=== PATIENT | male | born 1985 | race Hispanic/Latino ===

== ENCOUNTER 2019-03-01 09:49 | Observation (INO) | payer OTHER, SELFPAY ==
[2019-03-01] VITALS (8 sets, daily range): BP systolic 103–125; BP diastolic 58–77; PULSE 58–78; RESP 14–24; TEMP 36.6–36.9; O2SAT 95–99; BMI 24.3; BMI 22.8; BMI 22.9
--- NOTE | 2019-03-01 10:05 | EKG12_ITS ---
Test Reason : SOB Blood Pressure : / mmHG Vent. Rate : 062 BPM Atrial Rate : 062 BPM P-R Int : 136 ms QRS Dur : 090 ms QT Int : 388 ms P-R-T Axes : 062 048 032 degrees QTc Int : 393 ms Normal sinus rhythm Normal ECG Confirmed by SUMA STANLEY, ROBBY ([id number]), film editor supervisor MARTIN BERNARD ([id number] on 03/03/2019 8:43:55 AM Referred By: CRISTINA Confirmed By:ROBBY MOISE MD
--- NOTE | 2019-03-01 10:05 | CT_ITS ---
STUDY: CTA CHEST REASON FOR EXAM: Male, 34 years old. Hemoptysis and shortness of breath. Recent knee surgery. RADIATION DOSAGE (If Supplied By Facility): CTDIvol = ( 8.44 ) mGy, DLP = ( 218.23 ) mGycm TECHNIQUE: The examination was performed with the intravenous administration of IV 75mL [id number]-[id number] 75. Post-processing of the angiographic images was performed, with multiplanar reformation and 3D reconstruction. Individualized dose optimization techniques were used for this CT. COMPARISON: None. FINDINGS: Normal enhancement of the main pulmonary artery and right and left pulmonary arteries. Normal enhancement of the bilateral peripheral pulmonary arteries. There is no demonstrated pulmonary embolism. Normal thoracic aorta and visualized great vessels. There is no demonstrated aortic dissection. Normal heart and pericardium. Normal mediastinum. Normal hilar regions. Normal visualized trachea and bronchi. The lungs are well expanded. Diffuse bilateral patchy airspace disease involving both lungs. Normal pleura. Normal chest wall structures. Normal osseous structures. Normal visualized upper abdomen. CT/CTA Chest W/WO Contrast IMPRESSION: Diffuse bilateral patchy areas of airspace disease involving both lungs. With the patient's history of hemoptysis, this may represent pulmonary hemorrhage. Electronically Signed: Shukri Francois, at 11:22 EDT , Service support ,
--- NOTE | 2019-03-01 10:06 | ED.DCSUM_ITS ---
History of Present Illness Chief Complaint: Shortness of Breath Detail of Chief Complaint: Hemoptysis, pleuritic chest pain, shortness of breath, postop Informant: Friend - Friend is design leader per patient's request Limited by: Language barrier Onset: Today Context: Sudden Onset Timing: Continuous Quality: Dyspnea, pleuritic chest pain and hemoptysis Location: Respiratory Current Severity: Mild Maximum Severity: Moderate Worsened by: Exertion Relieved by: Nothing Associated Symptoms: No other symptoms Narrative: Patient is a 34-year-old male who presents because of pleuritic chest pain, shortness of breath and hemoptysis. He had arthroscopic surgery with meniscal ectomy and chondroplasty performed by Dr. Doug Rico on February 26. He does have slight swelling of his right lower extremity. He is on no anticoagulant. He has no past medical history. He has no allergies. Prior similar symptoms: No Recent Illness/Hospitalization: Yes - Outpatient knee surgery - Past Medical History (1) No significant past medical history Status: Acute Past Medical History - Allergies and Home Meds Allergies/Adverse Reactions: Allergies No Known Allergies Allergy (Verified 03/01/19 09:53) Primary Care Physician: NOT,DEFINED [NON-STAFF] - Prior records reviewed: No Past Medical History: None Surgical History: - - Right knee arthroscopic surgery Lives: Roommate Smoking Status: Never smoker Drugs: None Review of Systems General: Denies: Chills, Fever, Malaise, Sweats Eyes: Denies: Visual changes - bilaterally, Blurred Vision - bilaterally, Dipl opia ENT: Reports: Sore throat - Localizes to suprasternal notch. Denies: Rhinorrhea Cardiovascular: Reports: Chest pain. Denies: Palpitations, Heart racing Respiratory: Reports: Dyspnea, Dyspnea on exertion, - - Hemoptysis. Denies: Cough, Sputum, Orthopnea, Paroxysmal nocturnal dyspnea, - Gastrointestinal: Denies: Abdominal pain, Nausea, Vomiting, Diarrhea, Melena, Hematochezia Genitourinary: Denies: Dysuria, Hematuria, Frequency Musculoskeletal: Reports: Swelling - Right lower extremity. Denies: Myalgias, Arthralgias, Neck pain, Back pain, Extremity Pain Skin: Denies: Rash, Wounds Neurological: Denies: Headache, Weakness, Numbness Hematologic: Denies: Easy bruising, Easy bleeding Physical Exam Vital Signs/Narrative: Vital Signs Temp Pulse Resp BP Pulse Ox 03/01/19 09:51 98 F 78 18 104/69 99 Inital Vital Signs reviewed: Yes General: Well nourished, Well developed, No Acute Distress Head: Normocephalic, Atraumatic Eyes: Perrl, EOMI ENT: Moist mucous membranes, No rhinorrhea Neck: Supple, Nontender Cardiovascular: Regular rate, Regular rhythm, No murmurs, Normal S1, Normal S2 Respiratory: No distress, CTA bilaterally, Chest nontender Abdomen: Soft, Nontender, Nondistended, Normal bowel sounds Back: Nontender, Normal Inspection. Negative for: CVA tenderness Extremities: No edema, Tenderness Skin: Normal color, No rash, No Trauma. Negative for: Cyanosis, Diaphoresis, Jaundice Neurological: Alert, Oriented x3, Cranial nerves II-XII grossly intact, Normal Strength, Normal Sensation Psychological: Normal affect, Normal Mood Diagnostic/Tx/Re-eval Impressions Chest CTA 03/01/19 10:05 IMPRESSION: Diffuse bilateral patchy areas of airspace disease involving both lungs. With the patient's history of hemoptysis, this may represent pulmonary hemorrhage. Electronically Signed: Shukri Francois, at 11:22 EDT , Service support , 03/01/19 10:05 CTA Chest W/WO Contrast [CT] Stat Laboratory Results 03/01/19 03/01/19 03/01/19 10:33 10:33 10:33 WBC 6.4 RBC 4.53 L Hgb 14.1 Hct 42.0 MCV 92.7 MCH 31.1 MCHC 33.6 RDW Std Deviation 41.7 RDW Coeff of Esperanza 12.1 Plt Count 328 MPV 10.0 Immature Gran % (Auto) 0.500 Neut % (Auto) 60.9 Lymph % (Auto) 28.9 Harrison % (Auto) 8.6 Eos % (Auto) 0.6 Baso % (Auto) 0.5 Absolute Neuts (auto) 3.9 Absolute Lymphs (auto) 1.85 Nucleated RBC % 0 PT 13.1 INR 1.0 APTT 27.4 Sodium 139 Potassium 3.8 Chloride 106 Carbon Dioxide 28.0 Anion Gap 5 BUN 13 Creatinine 0.83 Estim Creat Clear Calc 119.46 Est GFR (MDRD) Af Amer 138 Est GFR (MDRD) Non-Af 114 BUN/Creatinine Ratio 15.7 Glucose 88 Calcium 8.5 Total Bilirubin 1.20 H AST 21 ALT 39 Alkaline Phosphatase 71 Total Protein 7.7 Albumin 4.0 Globulin 3.7 Albumin/Globulin Ratio 1.1 - EKG Initial EKG Interpretation: Sinus Rhythm - Sinus rhythm with ventricular rate of 62. NE interval 236 ms. QS duration 90 ms. QT duration 388 ms. [place] is normal. The EKG is normal. - Medical Decision Making With recent surgery, dyspnea, pleuritic chest pain and hemoptysis patient high pretest probability for pulmonary embolus. This may represent a ruptured blood vessel with hemoptysis versus pneumonia as well. CTA of the chest was obtained to evaluate for pulmonary embolus Case was discussed with Dr. Vishal Alcantara. He states this may be secondary to halogen anesthetic. Calls placed to the orthopedic surgical center determine what static was used for his procedure. Spoke with hospitalist. Patient to be assigned to PCU for close observation. ED Disposition - Plan for ED Patient: Disposition: Acute Care Hospital [facility] Diagnosis: Pulmonary infiltrate on radiologic exam, Pulmonary hemorrhage Referrals: NOT,DEFINED [NON-STAFF] -
--- NOTE | 2019-03-01 10:08 | NURSING ---
NO OLD EKGS
[2019-03-01 12:32] LABS: Absolute Lymphocyte Count 1.85 X10^3/uL (0.83-4.51); Absolute Neutrophil Count 3.9 X10^3/uL (2.0-7.7); Basophil# 0.03 X10^3/uL; Basophil% 0.5 % (0-1); Eosinophil# 0.04 X10^3/uL; Eosinophils% 0.6 % (0-5); Hemoglobin 14.1 g/dL (13.0-16.5); Lymphocyte # 1.85 X10^3/ul (4.0); Lymphocyte % 28.9 % (19-41); Mean Corp Hgb Conc 33.6 g/dL (32-36); Mean Corpuscular Hgb 31.1 pg (27.0-32.0); Mean Corpuscular Volume 92.7 fL (80-94); Monocyte# 0.55 X10^3/uL; Monocyte% 8.6 % (0-10); NRBC Flagged by Analyzer 0 % (0-5); Neutrophil # 3.91 X10^3/uL (2.7-7.7); Neutrophil % 60.9 % (47-70); Platelet Count 328 K/mm3 (150-450); RBC Distribution Width CV 12.1 % (11.6-14.6); RBC Distribution Width SD 41.7 fl (35.1-43.9); Red Blood Count 4.53 M/mm3 (4.6-6.2); White Blood Count 6.4 K/mm3 (4.4-11.0)
[2019-03-01 12:36] LABS: Partial Thromboplast Time 27.4 Seconds (24.1-36.2); Prothrombin Time (Protime)PT. 13.1 SECONDS (11.7-14.9)
[2019-03-01 12:51] LABS: ALB/GLOB Ratio 1.1 RATIO (0.9-2.4); AST(SGOT) 21 U/L (15-37); Alanine Aminotransfer ALT/SGPT 39 U/L (16-61); Alkaline Phosphatase 71 U/L (45-117); Anion Gap 5 (5-15); BUN 13 mg/dL (7-18); BUN/Creat Ratio 15.7 RATIO (10-20); Calcium,Total 8.5 mg/dL (8.5-10.1); Chloride 106 mmol/L (98-107); Creatinine, Serum 0.83 mg/dL (0.70-1.30); EST Glomerular Filtration Rate 114 mL/min (>60); Est Glom Filt Rate - Afr Amer 138 mL/min (>60); Estimated Creatinine Clearance 119.46 ml/min; Globulin 3.7 g/dL (2.2-4.2); Glucose 88 mg/dL (74-106); Potassium 3.8 mmol/L (3.5-5.1); Protein, Total 7.7 g/dL (6.4-8.2); Sodium Level 139 mmol/L (136-145)
--- NOTE | 2019-03-01 13:20 | HP.PCM_ITS ---
Problem List (1) Pulmonary hemorrhage Status: Acute History of Present Illness Date of Admission: 03/01/19 Chief Complaint: Hemoptysis - 2 days The patient is a 34 year old M patient with limited Hungarian fluency, with no significant past medical history, non-smoker, who had right knee arthroscopic surgery done 3 days ago. History was taken from patient and his friend at the bedside. According to his friend, patient was noted to be hypoxic with SPO2 in the 80s in the immediate postop 3 days ago. He received breathing treatments and his SPO2 improved to 92% and he was discharged home. At home he had intermittent coughing spasms. He had chest pain worse with deep breathing and coughing. He had 3 episodes of hemoptysis mixed with sputum, initially about a coin size. This increased today with a single episode of hemoptysis, which was larger than previous and was predominantly blood. Patient complains of pain in his upper chest, worse with coughing. He denied any fever or chills or dizziness or palpitations. Vitals in the ED showed temperature of 98F, heart rate 78, blood pressure 104/69, respiratory rate was 18, SPO2 is 99% on room air. Written blood work showed WBC count of 6.4, hemoglobin 14.1, platelet count of 328, INR 1.0, CMP was unremarkable except for slight elevation in total bilirubin, otherwise normal LFTs. CTA of the chest shows diffuse bilateral patchy airspace disease involving both lungs. Past Medical History Allergies No Known Allergies Allergy (Verified 03/01/19 09:53) Home Medications: Ambulatory Orders Medication Instructions Recorded traMADol [Ultram (G)] 50 mg PO Q6H PRN PRN 03/01/19 Surgical History: - - Right knee arthroscopic surgery Psychiatric History: No pertinent psych hx Lives: Friends, Roommate Smoking Status: Never smoker Tobacco Use: Non-smoker Alcohol: Occasional Drugs: None - *Family History Maternal History Items: No pertinent history Paternal History Items: Unknown Review of Systems Constitutional: Denies: Anorexia, Chills, Fever, Malaise, Weakness, Weight Change, Fatigue Eyes: Denies: Blurred vision, Cataracts, Conjunctivae Inflammation, Pain, Redness, Vision Change HEENT: Denies: Difficulty Hearing, Difficulty Swallowing, Head Aches, Hearing Changes, Sinus Congestion, Sinus Drainage Cardiovascular: Denies: Chest Pain, Claudication, Chest Tightness, Light Headedness, Orthopnea, Palpitations Respiratory: Reports: Hemoptysis, Shortness of Breath, Shortness of breath upon exertion. Denies: Cough, Shortness of breath at rest, Sputum production, Wheezing Gastrointestinal: Denies: Abdominal Pain, Constipation, Hematemesis, Hematochezia, Nausea, Vomiting Genitourinary: Denies: Dysuria, Frequency, Incontinence Musculoskeletal: Reports: Joint Tenderness - Right knee surgical site. Denies: Joint Pain, Joint stiffness, Joint swelling Skin: Denies: Rash, Wounds Neurological: Denies: Numbness, Tingling, Focal weakness Psychiatric: Denies: Anxiety, Depression, Homicidal Ideations, Suicidal Ideations Hematologic/ Lymphatic: Denies: Easy Bruising, Easy Bleeding VTE Information - Inpt Only VTE Present on Admission: No VTE Pharm Prophylaxis ordered?: Yes Patient Problems: Active and Suspected Problems Pulmonary infiltrate on radiologic exam (Acute) Pulmonary hemorrhage (Acute) - Physical Exam General: Alert, Oriented x3, Cooperative, No apparent distress HEENT: Atraumatic, PERRLA, EOMI, Normocephalic Oral: Moist Mucosa Neck: Supple Lungs: Clear to auscultation, Normal air movement Cardiovascular: Regular rate, Regular Rhythm, Normal S1, Normal S2, No murmurs Abdomen: Bowel Sounds Present, Soft, Non Tender, Non-Distended, No Hepato- splenomegaly Extremities: No edema, - - Right knee with mild swelling, erthema, 2 arthroscopic sutures are present, clean, no discharge from surgical sites Skin: No rashes, No breakdown Musculoskeletal: No Tenderness to Palpation of Joints or Extremities Lymphatic: No Cervical, Supraclavicular, or Inguinal Adenopathy Neurological: Cranial nerves II-XII grossly intact, Neuro grossly intact Psych/Mental Status: Normal Affect, Appropriate Vital Signs Temp Pulse Resp BP Pulse Ox 98 F 68 20 H 104/69 98 03/01/19 09:51 03/01/19 10:22 03/01/19 10:22 03/01/19 09:51 03/01/19 10:22 Oxygen Delivery Method Room Air Weight: 70.307 kg Body Mass Index (BMI) 24.3 Laboratory Tests Past 24 Hrs 03/01/19 03/01/19 03/01/19 10:33 10:33 10:33 WBC 6.4 RBC 4.53 L Hgb 14.1 Hct 42.0 MCV 92.7 MCH 31.1 MCHC 33.6 RDW Std Deviation 41.7 RDW Coeff of Esperanza 12.1 Plt Count 328 MPV 10.0 Immature Gran % (Auto) 0.500 Neut % (Auto) 60.9 Lymph % (Auto) 28.9 [place] % (Auto) 8.6 Eos % (Auto) 0.6 Baso % (Auto) 0.5 Absolute Neuts (auto) 3.9 Absolute Lymphs (auto) 1.85 Nucleated RBC % 0 PT 13.1 INR 1.0 APTT 27.4 Sodium 139 Potassium 3.8 Chloride 106 Carbon Dioxide 28.0 Anion Gap 5 BUN 13 Creatinine 0.83 Estim Creat Clear Calc 119.46 Est GFR (MDRD) Af Amer 138 Est GFR (MDRD) Non-Af 114 BUN/Creatinine Ratio 15.7 Glucose 88 Calcium 8.5 Total Bilirubin 1.20 H AST 21 ALT 39 Alkaline Phosphatase 71 Total Protein 7.7 Albumin 4.0 Globulin 3.7 Albumin/Globulin Ratio 1.1 Assessment/Plan All Active Problems No significant past medical history (Acute) Pulmonary infiltrate on radiologic exam (Acute) Pulmonary hemorrhage (Acute) 34 year old male patient with limited Hungarian fluency, with no significant past medical history, non-smoker, who had right knee arthroscopic surgery done 3 days ago. History was taken from patient and his friend at the bedside. 1. Hemoptysis, minimal per history, intermittent. History of recent arthroscopic surgery with immediate post-op hypoxia Likely aspiration pneumonitis. CTA of the chest shows bilateral diffuse alveolar opacities Plan: Admit to PCU under observation, breathing treatments prn, IV steroids, pulmonology consult Monitor for ongoing hemoptysis, HH Q6 x2, labs in am 2. Elevated total bilirubin, unclear etiology, unremarkable LFTs otherwise Will fractionate bilirubin, repeat blood work in am 3. Recent arthroscopic right knee surgery, postop day 3, patient denies pain Wound looks clean, encourage ambulation 4. DVT PPx- early ambulation Code Visit OBSV E&M: 28304 Initial observation care L3
--- NOTE | 2019-03-01 13:20 | NURSING ---
PCU PAINTSIL OBS NIRMALA PULMONARY INFILTRATES AND PULMONARY HEMORRHAGE
[2019-03-01] MEDS: MethylPREDNISolone 125 MG/2 ML Vial IV (13:42)
[2019-03-01 15:14] LABS: Hematocrit 43.2 % (40-54); Hemoglobin 14.4 g/dL (13.0-16.5)
--- NOTE | 2019-03-01 15:21 | PCM.CONS.PUL ---
Problem List (1) No significant past medical history Status: Acute (2) Pulmonary infiltrate on radiologic exam Status: Acute (3) Pulmonary hemorrhage Status: Acute Reason for Consult Date of Consultation: 03/01/19 Reason for Consultation: Hemoptysis History of Present Illness: The patient is a 34 year old M, with no significant past medical history, who presented to [facility] on 03/01/2019 secondary to progressive hemoptysis. Patient had reportedly had an arthroscopic knee surgery by Dr. Rico on February 26. Per the ER, patient did have some laryngospasm following surgery, but responded well to albuterol therapy. Patient reportedly received IV Versed and IV propofol. Patient had some shortness of breath after going home, but over the weekend started to develop progressive shortness of breath, pleuritic type chest pain and progressive hemoptysis, so came to the ER for evaluation. In the ER, patient had a significant lab work-up that was unremarkable, but his CT scan of the chest showed diffuse alveolar fluffy infiltrates. Some concern for the progression of hemoptysis, so patient was admitted under an observation status for evaluation. 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 Patient is from [facility], but has not been out of the country for over 10 years. Patient denies any prodromal fever, chills, nausea, vomiting, pleuritic chest pain, abdominal pain, melena or hematochezia. Patient does not report a history of chronic sinus issues. Patient did report a mild sore throat after his surgery, but had associated this with the onset of cough. Patient initially had reported no hemoptysis, but after 24 hours a dime sized hemoptysis and progressed to approximately quarter size hemoptysis this morning. This is what prompted the ER visit. Patient states that he is otherwise feeling okay. Patient is not having any significant sinus issues at this time. Patient states he has limited contact with his family, but is unaware of any rheumatologic or asthma type symptoms and any family members. Patient is never used inhalers himself. Patient never had a pulmonary function test. Patient denies any recent noxious exposures. Patient does not report any medication allergies. History was somewhat limited secondary to language barrier, but friend is able to interpret for him. Review of systems otherwise negative from a constitutional, HEENT, respiratory, cardiovascular, GI, genitourinary, musculoskeletal, skin, neurologic, psychiatric and hematologic system unless stated above. Past Medical History Allergies No Known Allergies Allergy (Verified 03/01/19 09:53) Home Medications: Ambulatory Orders Medication Instructions Recorded traMADol [Ultram (G)] 50 mg PO Q6H PRN PRN 03/01/19 Surgical History: - - Right knee arthroscopic surgery Psychiatric History: No pertinent psych hx Lives: Friends, Roommate Smoking Status: Never smoker Tobacco Use: Non-smoker Alcohol: Occasional Drugs: None - *Family History Maternal History Items: No pertinent history Paternal History Items: Unknown Review of Systems Comment: See HPI Patient Problems: Active and Suspected Problems Pulmonary infiltrate on radiologic exam (Acute) Pulmonary hemorrhage (Acute) Objective: CT scan of the chest was personally reviewed. No PE was identified, but patient does have multiple areas of alveolar fluffy infiltrates with posterior predominance. - Physical Exam General: Alert, Oriented x3, Cooperative, No apparent distress, Well developed, Well nourished, - - No conversational dyspnea. Appears stated age. HEENT: Atraumatic, PERRLA, EOMI, Normocephalic, - - No scleral icterus or injection noted. No epistaxis appreciated. Oral: Moist Mucosa, No Gingival or Mucosal Lesions/ Ulcerations Neck: Supple, No JVD, No Nodes, Trachea Midline Lungs: Clear to auscultation, Normal air movement, No rhonchi, No wheeze, No rales, - - Symmetric expansion. No dullness to percussion. Cardiovascular: Regular rate, Regular Rhythm, Normal S1, Normal S2, No murmurs, No rub noted, No Gallop Abdomen: Bowel Sounds Present, Soft, Non Tender, Non-Distended Extremities: No clubbing, No cyanosis, Capillary Refill Less than 3 Seconds, - - Slight edema of the right lower extremity. No exudate noted from surgical sites. Skin: No rashes, No breakdown, Incision - Clean, dry and intact on right knee Musculoskeletal: No Tenderness to Palpation of Joints or Extremities Lymphatic: No Cervical, Supraclavicular, or Inguinal Adenopathy Neurological: Cranial nerves II-XII grossly intact, Neuro grossly intact, Motor Exam 5/5 strength throughout Psych/Mental Status: Alert and oriented to time, place, person, mood and affect Vital Signs Temp Pulse Resp BP Pulse Ox 36.9 C 58 L 14 116/74 98 03/01/19 14:17 03/01/19 14:17 03/01/19 14:17 03/01/19 14:17 03/01/19 14:17 Oxygen Delivery Method Room Air Weight: 66.2 kg Body Mass Index (BMI) 22.8 Intake and Output for Last 24 Hours 02/27/19 02/28/19 03/01/19 23:59 23:59 23:59 Intake Total 815.48 / 815.48 Balance 815.48 / 815.48 Laboratory Tests Past 24 Hrs 03/01/19 03/01/19 03/01/19 10:33 10:33 10:33 WBC 6.4 RBC 4.53 L Hgb 14.1 Hct 42.0 MCV 92.7 MCH 31.1 MCHC 33.6 RDW Std Deviation 41.7 RDW Coeff of Esperanza 12.1 Plt Count 328 MPV 10.0 Immature Gran % (Auto) 0.500 Neut % (Auto) 60.9 Lymph % (Auto) 28.9 Petroleum % (Auto) 8.6 Eos % (Auto) 0.6 Baso % (Auto) 0.5 Absolute Neuts (auto) 3.9 Absolute Lymphs (auto) 1.85 Nucleated RBC % 0 PT 13.1 INR 1.0 APTT 27.4 Sodium 139 Potassium 3.8 Chloride 106 Carbon Dioxide 28.0 Anion Gap 5 BUN 13 Creatinine 0.83 Estim Creat Clear Calc 119.46 Est GFR (MDRD) Af Amer 138 Est GFR (MDRD) Non-Af 114 BUN/Creatinine Ratio 15.7 Glucose 88 Calcium 8.5 Total Bilirubin 1.20 H Direct Bilirubin Indirect Bilirubin AST 21 ALT 39 Alkaline Phosphatase 71 Total Protein 7.7 Albumin 4.0 Globulin 3.7 Albumin/Globulin Ratio 1.1 03/01/19 03/01/19 14:55 14:55 WBC RBC Hgb Pending Hct Pending MCV MCH MCHC RDW Std Deviation RDW Coeff of Esperanza Plt Count MPV Immature Gran % (Auto) Neut % (Auto) Lymph % (Auto) Petroleum % (Auto) Eos % (Auto) Baso % (Auto) Absolute Neuts (auto) Absolute Lymphs (auto) Nucleated RBC % PT INR APTT Sodium Potassium Chloride Carbon Dioxide Anion Gap BUN Creatinine Estim Creat Clear Calc Est GFR (MDRD) Af Amer Est GFR (MDRD) Non-Af BUN/Creatinine Ratio Glucose Calcium Total Bilirubin Pending Direct Bilirubin Pending Indirect Bilirubin Pending AST ALT Alkaline Phosphatase Total Protein Albumin Globulin Albumin/Globulin Ratio Clinical Impression(s) from Imaging Studies Chest CTA 03/01/19 10:05 IMPRESSION: Diffuse bilateral patchy areas of airspace disease involving both lungs. With the patient's history of hemoptysis, this may represent pulmonary hemorrhage. Electronically Signed: Shukri Francois, at 11:22 EDT , Service support , Assessment/Plan All Active Problems No significant past medical history (Acute) Pulmonary infiltrate on radiologic exam (Acute) Pulmonary hemorrhage (Acute) RECOMMENDATIONS: 1. Autoimmune work-up as ordered 2. Agree with IV steroids 3. Okay to receive clear diet overnight 4. Obtain sputum culture 5. Potential discharge tomorrow if hemoptysis is not worsening IMPRESSIONS: 1. Acute hemoptysis Exact etiology is unclear at this time. Diffuse alveolar hemorrhage would be of concern. Patient has not reportedly been on any anticoagulants, nitrofurantoin, amiodarone, cocaine, sirolimus or other toxic exposures. Patient denied vaping. Clinical concern for systemic vasculitis as a possible etiology. Patient is not reporting chronic sinus issues to be suggestive of Jose Roberto's granulomatosis. Patient does not have any lower extremity findings consistent with HSP. Renal function appears to be intact. Will obtain an extensive autoimmune work-up as ordered. Will obtain a sputum culture for evaluation of pneumonia. Patient may have negative pressure pulmonary edema given laryngospasm reported after surgery. 2. Recent right knee surgery Complicates care, management, recovery and prognosis. Patient does not appear to have an acute infection clinically. Would hold off on any antibiotics for now. Continue to monitor. Patient should resume precautions as recommended postoperatively. Likely not necessary to get orthopedics involved at this time in my opinion. Code Visit Inpatient E&M: 59214 Init Hosp L3
[2019-03-01 15:33] LABS: Bilirubin, Direct 0.24 mg/dL (0.00-0.30)
[2019-03-01 15:44] LABS: Bacteria 0 SEEN /hpf (None Seen); Mucous, Urine 0 SEEN /hpf (<or=2+); Red Blood Cells-Urine 0 SEEN /hpf (0-5); White Blood Cells 0 SEEN /hpf (0-5)
[2019-03-01 15:48] LABS: Rheumatoid Factor < 10.0 IU/mL (<15)
[2019-03-01 16:04] LABS: Color, Urine Yellow (Yellow); Glucose, Dipstick Normal (Normal); Ketone-Dipstick 50 mg/dl (Negative); Leukocyte Esterase-Dipstick Negative /ul (Negative); Nitrite-Dipstick Negative (Negative); Occult Blood-Urine Negative /ul (Negative); Protein-Dipstick Negative (Negative); Specific Gravity, Urine 1.005 (1.002-1.030); Urine Bilirubin Dipstick Negative (Negative); Urine Clarity Sl. Cloudy (Clear); Urine Urobilinogen Normal (Normal)
[2019-03-01 16:31] LABS: Squamous Epithelial Cells - UA 0-5 SEEN /hpf (0-5)
[2019-03-01] MEDS: 0.9% NaCl Peripheral Flush Adult/Peds IV ×2 (17:25→21:31)
[2019-03-01 17:47] LABS: Erythrocyte Sedimentation Rate 10 mm/hr (0-15)
[2019-03-01 20:56] LABS: Hematocrit 40.8 % (40-54); Hemoglobin 13.9 g/dL (13.0-16.5)
[2019-03-01] MEDS: Famotidine 20 MG Tablet PO (21:29)
[2019-03-02 03:00] VITALS: PULSE 62
[2019-03-02 03:40] VITALS: BP 102/63; PULSE 68; RESP 16; TEMP 36.7; O2SAT 97
[2019-03-02 04:45] VITALS: BMI 22.8
[2019-03-02] MEDS: 0.9% NaCl Peripheral Flush Adult/Peds IV (05:17)
[2019-03-02 06:02] VITALS: BMI 22.8
[2019-03-02 07:00] VITALS: PULSE 60
[2019-03-02 07:44] LABS: Absolute Lymphocyte Count 1.16 X10^3/uL (0.83-4.51); Absolute Neutrophil Count 6.2 X10^3/uL (2.0-7.7); Basophil# 0.01 X10^3/uL; Basophil% 0.1 % (0-1); Eosinophil# 0.12 X10^3/uL; Eosinophils% 1.5 % (0-5); Hematocrit 42.8 % (40-54); Hemoglobin 14.4 g/dL (13.0-16.5); Lymphocyte # 1.16 X10^3/ul (4.0); Lymphocyte % 14.9 % (19-41); Mean Corp Hgb Conc 33.6 g/dL (32-36); Mean Corpuscular Hgb 30.9 pg (27.0-32.0); Mean Corpuscular Volume 91.8 fL (80-94); Mean Platelet Vol. 10.1 fl (6.2-12.0); Monocyte# 0.29 X10^3/uL; Monocyte% 3.7 % (0-10); NRBC Flagged by Analyzer 0 % (0-5); Neutrophil # 6.15 X10^3/uL (2.7-7.7); Neutrophil % 79.4 % (47-70); POSITIVE MORPHOLOGY YES; Platelet Count 390 K/mm3 (150-450); RBC Distribution Width CV 11.9 % (11.6-14.6); RBC Distribution Width SD 39.8 fl (35.1-43.9); Red Blood Count 4.66 M/mm3 (4.6-6.2); White Blood Count 7.8 K/mm3 (4.4-11.0)
[2019-03-02 07:48] LABS: Differential Indicated SCAN CRITERIA MET
[2019-03-02 08:01] LABS: ALB/GLOB Ratio 1.1 RATIO (0.9-2.4); AST(SGOT) 19 U/L (15-37); Alanine Aminotransfer ALT/SGPT 34 U/L (16-61); Alkaline Phosphatase 67 U/L (45-117); Anion Gap 7 (5-15); BUN 14 mg/dL (7-18); BUN/Creat Ratio 16.8 RATIO (10-20); Calcium,Total 8.4 mg/dL (8.5-10.1); Chloride 107 mmol/L (98-107); Creatinine, Serum 0.83 mg/dL (0.70-1.30); EST Glomerular Filtration Rate 114 mL/min (>60); Est Glom Filt Rate - Afr Amer 138 mL/min (>60); Estimated Creatinine Clearance 119.46 ml/min; Globulin 3.8 g/dL (2.2-4.2); Glucose 115 mg/dL (74-106); Potassium 3.9 mmol/L (3.5-5.1); Protein, Total 7.8 g/dL (6.4-8.2); Sodium Level 140 mmol/L (136-145)
[2019-03-02 08:17] LABS: Differential Comment SCANNED
--- NOTE | 2019-03-02 08:43 | PN_ITS ---
Patient Problems: Active and Suspected Problems Pulmonary infiltrate on radiologic exam (Acute) Pulmonary hemorrhage (Acute) Subjective: Patient did well overnight. No acute issues were reported. Patient has not reported any recurrence of hemoptysis after initiation of steroid therapy. Patient denies any chest pain. - Physical Exam General: Alert, Oriented x3, Cooperative, No apparent distress, Well developed, Well nourished, - - No conversational dyspnea. HEENT: Atraumatic, PERRLA, EOMI, Normocephalic, - - No scleral icterus or injection noted Oral: Moist Mucosa, No Gingival or Mucosal Lesions/ Ulcerations Neck: Supple, No JVD, No Nodes, Trachea Midline Lungs: Clear to auscultation, Normal air movement, No rhonchi, No wheeze, No rales Cardiovascular: Regular rate, Regular Rhythm, Normal S1, Normal S2, No murmurs, No rub noted, No Gallop Abdomen: Bowel Sounds Present, Soft, Non Tender, Non-Distended Extremities: No clubbing, No cyanosis, No edema, Capillary Refill Less than 3 Seconds Skin: No rashes, No breakdown Musculoskeletal: No Tenderness to Palpation of Joints or Extremities Lymphatic: No Cervical, Supraclavicular, or Inguinal Adenopathy Neurological: Cranial nerves II-XII grossly intact, Neuro grossly intact, Motor Exam 5/5 strength throughout Psych/Mental Status: Alert and oriented to time, place, person, mood and affect Vital Signs Temp Pulse Resp BP Pulse Ox 36.7 C 60 16 102/63 97 03/02/19 03:40 03/02/19 07:00 03/02/19 03:40 03/02/19 03:40 03/02/19 03:40 Oxygen Delivery Method Room Air Weight: 66.2 kg Body Mass Index (BMI) 22.8 Intake and Output for Last 24 Hours 02/28/19 03/01/19 03/02/19 23:59 23:59 23:59 Intake Total 1415.48 / 1415.48 0 / 0 Balance 1415.48 / 1415.48 0 / 0 Laboratory Tests Past 24 Hrs 03/01/19 03/01/19 03/01/19 10:33 10:33 10:33 WBC 6.4 RBC 4.53 L Hgb 14.1 Hct 42.0 MCV 92.7 MCH 31.1 MCHC 33.6 RDW Std Deviation 41.7 RDW Coeff of [place]per[place] 12.1 Plt Count 328 MPV 10.0 Immature Gran % (Auto) 0.500 Neut % (Auto) 60.9 Lymph % (Auto) 28.9 [place] % (Auto) 8.6 Eos % (Auto) 0.6 Baso % (Auto) 0.5 Absolute Neuts (auto) 3.9 Absolute Lymphs (auto) 1.85 Nucleated RBC % 0 Differential Comment ESR PT 13.1 INR 1.0 APTT 27.4 Sodium 139 Potassium 3.8 Chloride 106 Carbon Dioxide 28.0 Anion Gap 5 BUN 13 Creatinine 0.83 Estim Creat Clear Calc 119.46 Est GFR (MDRD) Af Amer 138 Est GFR (MDRD) Non-Af 114 BUN/Creatinine Ratio 15.7 Glucose 88 Calcium 8.5 Total Bilirubin 1.20 H Direct Bilirubin Indirect Bilirubin AST 21 ALT 39 Alkaline Phosphatase 71 Total Protein 7.7 Albumin 4.0 Globulin 3.7 Albumin/Globulin Ratio 1.1 Urine Color Urine Clarity Urine pH Ur Specific [place] Urine Protein Urine Glucose (UA) Urine Ketones Urine Occult Blood Urine Nitrite Urine Bilirubin Urine Urobilinogen Ur Leukocyte Esterase Urine RBC Urine WBC Ur Squamous Epith Cells Urine Bacteria Urine Mucus Rheumatoid Factor Cycl Citrul Peptide IgG SHOSHANA Screen c-ANCA Antibody p-ANCA Antibody MARINA-1 Antibody SS-A/Ro IgG Antibody SS-B/La IgG Antibody Sm ([place]) Antibody RETAIL ASSOCIATE Antibody Scl-70 Scleroderma Ab Double Strand DNA Ab Centromere B Antibody 03/01/19 03/01/19 03/01/19 14:55 14:55 14:55 WBC RBC Hgb 14.4 Hct 43.2 MCV MCH MCHC RDW Std Deviation RDW Coeff of [place] Plt Count MPV Immature Gran % (Auto) Neut % (Auto) Lymph % (Auto) [place] % (Auto) Eos % (Auto) Baso % (Auto) Absolute Neuts (auto) Absolute Lymphs (auto) Nucleated RBC % Differential Comment ESR 10 PT INR APTT Sodium Potassium Chloride Carbon Dioxide Anion Gap BUN Creatinine Estim Creat Clear Calc Est GFR (MDRD) Af Amer Est GFR (MDRD) Non-Af BUN/Creatinine Ratio Glucose Calcium Total Bilirubin 1.20 H Direct Bilirubin 0.24 Indirect Bilirubin 1.00 AST ALT Alkaline Phosphatase Total Protein Albumin Globulin Albumin/Globulin Ratio Urine Color Urine Clarity Urine pH Ur Specific [place] Urine Protein Urine Glucose (UA) Urine Ketones Urine Occult Blood Urine Nitrite Urine Bilirubin Urine Urobilinogen Ur Leukocyte Esterase Urine RBC Urine WBC Ur Squamous Epith Cells Urine Bacteria Urine Mucus Rheumatoid Factor Cycl Citrul Peptide IgG SH[place]HANA Screen c-ANCA Antibody p-ANCA Antibody MARINA-1 Antibody SS-A/Ro IgG Antibody SS-B/La IgG Antibody Sm ([place]) Antibody RETAIL ASSOCIATE Antibody Scl-70 Scleroderma Ab Double Strand DNA Ab Centromere B Antibody 03/01/19 03/01/19 03/01/19 14:55 15:25 16:26 WBC RBC Hgb Hct MCV MCH MCHC RDW Std Deviation RDW Coeff of [place] Plt Count MPV Immature Gran % (Auto) Neut % (Auto) Lymph % (Auto) [place] % (Auto) Eos % (Auto) Baso % (Auto) Absolute Neuts (auto) Absolute Lymphs (auto) Nucleated RBC % Differential Comment ESR PT INR APTT Sodium Potassium Chloride Carbon Dioxide Anion Gap BUN Creatinine Estim Creat Clear Calc Est GFR (MDRD) Af Amer Est GFR (MDRD) Non-Af BUN/Creatinine Ratio Glucose Calcium Total Bilirubin Direct Bilirubin Indirect Bilirubin AST ALT Alkaline Phosphatase Total Protein Albumin Globulin Albumin/Globulin Ratio Urine Color Yellow Urine Clarity Sl. Cloudy Urine pH 7.0 Ur Specific [place] 1.005 Urine Protein Negative Urine Glucose (UA) Normal Urine Ketones 50 H Urine Occult Blood Negative Urine Nitrite Negative Urine Bilirubin Negative Urine Urobilinogen Normal Ur Leukocyte Esterase Negative Urine RBC 0 SEEN Urine WBC 0 SEEN Ur Squamous Epith Cells 0-5 SEEN Urine Bacteria 0 SEEN Urine Mucus 0 SEEN Rheumatoid Factor < 10.0 Cycl Citrul Peptide IgG SHOSHANA Screen Pending c-ANCA Antibody p-ANCA Antibody MARINA-1 Antibody Pending SS-A/Ro IgG Antibody Pending SS-B/La IgG Antibody Pending Sm ([place]) Antibody Pending RETAIL ASSOCIATE Antibody Pending Scl-70 Scleroderma Ab Pending Double Strand DNA Ab Pending Centromere B Antibody Pending 03/01/19 03/01/19 03/02/19 16:26 20:48 05:10 WBC 7.8 RBC 4.66 Hgb 13.9 14.4 Hct 40.8 42.8 MCV 91.8 MCH 30.9 MCHC 33.6 RDW Std Deviation 39.8 RDW Coeff of [place] 11.9 Plt Count 390 MPV 10.1 Immature Gran % (Auto) 0.400 Neut % (Auto) 79.4 H Lymph % (Auto) 14.9 L [place] % (Auto) 3.7 Eos % (Auto) 1.5 Baso % (Auto) 0.1 Absolute Neuts (auto) 6.2 Absolute Lymphs (auto) 1.16 Nucleated RBC % 0 Differential Comment SCANNED ESR PT INR APTT Sodium Potassium Chloride Carbon Dioxide Anion Gap BUN Creatinine Estim Creat Clear Calc Est GFR (MDRD) Af Amer Est GFR (MDRD) Non-Af BUN/Creatinine Ratio Glucose Calcium Total Bilirubin Direct Bilirubin Indirect Bilirubin AST ALT Alkaline Phosphatase Total Protein Albumin Globulin Albumin/Globulin Ratio Urine Color Urine Clarity Urine pH Ur Specific [place] Urine Protein Urine Glucose (UA) Urine Ketones Urine Occult Blood Urine Nitrite Urine Bilirubin Urine Urobilinogen Ur Leukocyte Esterase Urine RBC Urine WBC Ur Squamous Epith Cells Urine Bacteria Urine Mucus Rheumatoid Factor Cycl Citrul Peptide IgG Pending SHOSHANA Screen c-ANCA Antibody Pending p-ANCA Antibody Pending MARINA-1 Antibody SS-A/Ro IgG Antibody SS-B/La IgG Antibody Sm ([place]) Antibody RETAIL ASSOCIATE Antibody Scl-70 Scleroderma Ab Double Strand DNA Ab Centromere B Antibody 03/02/19 05:10 WBC RBC Hgb Hct MCV MCH MCHC RDW Std Deviation RDW Coeff of [place] Plt Count MPV Immature Gran % (Auto) Neut % (Auto) Lymph % (Auto) [place] % (Auto) Eos % (Auto) Baso % (Auto) Absolute Neuts (auto) Absolute Lymphs (auto) Nucleated RBC % Differential Comment ESR PT INR APTT Sodium 140 Potassium 3.9 Chloride 107 Carbon Dioxide 26.0 Anion Gap 7 BUN 14 Creatinine 0.83 Estim Creat Clear Calc 119.46 Est GFR (MDRD) Af Amer 138 Est GFR (MDRD) Non-Af 114 BUN/Creatinine Ratio 16.8 Glucose 115 H Calcium 8.4 L Total Bilirubin 1.50 H Direct Bilirubin Indirect Bilirubin AST 19 ALT 34 Alkaline Phosphatase 67 Total Protein 7.8 Albumin 4.0 Globulin 3.8 Albumin/Globulin Ratio 1.1 Urine Color Urine Clarity Urine pH Ur Specific [place] Urine Protein Urine Glucose (UA) Urine Ketones Urine Occult Blood Urine Nitrite Urine Bilirubin Urine Urobilinogen Ur Leukocyte Esterase Urine RBC Urine WBC Ur Squamous Epith Cells Urine Bacteria Urine Mucus Rheumatoid Factor Cycl Citrul Peptide IgG SH[place] Screen c-ANCA Antibody p-ANCA Antibody MARINA-1 Antibody SS-A/Ro IgG Antibody SS-B/La IgG Antibody Sm ([place]) Antibody RETAIL ASSOCIATE Antibody Scl-70 Scleroderma Ab Double Strand DNA Ab Centromere B Antibody Clinical Impression(s) from Imaging Studies Chest CTA 03/01/19 10:05 IMPRESSION: Diffuse bilateral patchy areas of airspace disease involving both lungs. With the patient's history of hemoptysis, this may represent pulmonary hemorrhage. Electronically Signed: Shukri Francois, at 11:22 EDT , Service support , Medical Necessity - Tobacco Use Smoking Status: Never smoker Tobacco Use: Non-smoker Assessment/Plan All Active Problems No significant past medical history (Acute) Pulmonary infiltrate on radiologic exam (Acute) Pulmonary hemorrhage (Acute) RECOMMENDATIONS: 1. Follow-up as an outpatient to review autoimmune work-up 2. Transition to p.o. prednisone. Wean over the next 12 to 14 days 3. Okay to initiate regular diet 4. Okay to discharge after lunch if continues to be hemodynamically stable 5. Patient should follow-up in our office in 2 weeks with nurse practitioner. IMPRESSIONS: 1. Acute hemoptysis Exact etiology is unclear at this time. Diffuse alveolar hemorrhage would be of concern. Extensive work-up has been ordered. Patient is not reporting any noxious exposures at this time. Patient does not need to be hospitalized waiting for autoimmune work-up. Will treat empirically with steroids over the next 12 to 14 days. Patient can follow-up in our office in 2 weeks. If autoimmune work-up is negative, patient can likely follow-up on an as-needed basis without need for pulmonary function testing. If autoimmune work-up is positive or hemoptysis were to recur, complete pulmonary function test and evaluation for bronchoscopy would be appropriate. 2. Recent right knee surgery Complicates care, management, recovery and prognosis. Patient does not appear to have an acute infection clinically. Would hold off on any antibiotics for now. Continue to monitor. Patient should resume precautions as recommended postoperatively. Likely not necessary to get orthopedics involved at this time in my opinion. Code Visit Inpatient E&M: 09798 Subs Hosp L2
[2019-03-02 09:00] VITALS: BP 106/60; PULSE 65; RESP 12; TEMP 36.7; O2SAT 100
[2019-03-02] MEDS: predniSONE 20 MG Tablet 40 MG PO (09:01)
[2019-03-02] MEDS: Famotidine 20 MG Tablet PO (09:01)
[2019-03-02 10:54] VITALS: PULSE 75
--- NOTE | 2019-03-02 11:09 | DCINST_ITS ---
- Discharge Diagnoses Current Active Problems: Current Active and Chronic Problems Pulmonary infiltrate on radiologic exam (Acute) Pulmonary hemorrhage (Acute) You will use the following diet at home:: Regular Your food should be the consistency of: Regular Discharge Activity: Return to Normal Activity Weight Bearing Status: Full weight bearing Call your doctor if you observe: Fever of 101 or Higher, Shortness of breath, Dizziness, Fainting spells, Chest pain, Increased palpitations (irregular heartbeat), Uncontrolled pain Allergies/Adverse Reactions: Allergies No Known Allergies Allergy (Verified 03/01/19 09:53) Medications to take at Discharge traMADol [Ultram] 50 mg PO Q6H PRN PRN 03/01/19 Prednisone 10 mg PO DAILY #30 tab 03/02/19 The following prescriptions were given: Prednisone 10 mg PO DAILY #30 tab Transmission Status: Pending to [facility] Primary Care Physician: NOT,DEFINED [NON-STAFF] - Test Results: Test results from this visit will be discussed in further detail at your follow- up appointment, if applicable. Please Follow Up With: Khushbu Beverly NP-C When: 2 weeks.
--- NOTE | 2019-03-02 12:19 | DS.PCM_ITS ---
Discharge Date and Diagnosis - Problem List Patient Problems: Active and Suspected Problems Pulmonary infiltrate on radiologic exam (Acute) Pulmonary hemorrhage (Acute) Date of Admission: 03/01/19 Date of Discharge: 03/02/19 - Primary Discharge Diagnosis Active and Suspected Problems #1 acute hemoptysis, unclear etiology. #2 pulmonary infiltrate on radiologic exam, unclear etiology (Acute) Hospital Course and Treatment Imaging Results: Clinical Impression(s) from Imaging Studies Chest CTA 03/01/19 10:05 IMPRESSION: Diffuse bilateral patchy areas of airspace disease involving both lungs. With the patient's history of hemoptysis, this may represent pulmonary hemorrhage. Electronically Signed: Shukri Francois, at 11:22 EDT , Service support , Dr. Alcantara, pulmonology. Operations: None Procedures: None Summary of Care Provided: Patient seen and examined on the day of discharge and appeared to be stable to be discharged home. He denies any more hemoptysis, no cough, no shortness of breath. His vital signs are stable, afebrile, pulse ox is 100% on room air. The patient is a 34 year old M admitted because of hemoptysis. Patient had a right knee arthroscopic surgery 3 days before this hospital admission and postoperatively, he was found to be hypoxic, was given breathing treatment and his pulse ox improved and he was discharged after his right knee arthroscopic surgery. CTA chest done and revealed diffuse bilateral patchy areas of airspace disease involving both lungs. Patient's routine blood work was unremarkable. Urinalysis showed no acute findings. Pulmonology consulted and recommended to start patient on IV steroids and to do extensive autoimmune work-up to rule out autoimmune diseases that may have pulmonary involvement. On the day of discharge, patient denies any more hemoptysis and his pulse ox remained at 100% on room air. He has been afebrile throughout the stay, no leukocytosis. Patient discharged home in a stable medical condition, discharged on prednisone taper over 12 days, autoimmune work-up is pending at the time of discharge, plan to follow-up with pulmonology in 2 weeks. Patient Problems: Active and Suspected Problems Pulmonary infiltrate on radiologic exam (Acute) Pulmonary hemorrhage (Acute) - Physical Exam General: Alert, Oriented x3, Cooperative, No apparent distress HEENT: Atraumatic, PERRLA, EOMI, Normocephalic Oral: Moist Mucosa, No Gingival or Mucosal Lesions/ Ulcerations Neck: Supple, No JVD, Negative Carotid Bruits, Trachea Midline, Thyroid Normal Size and Texture Lungs: Clear to auscultation, Normal air movement, No rhonchi, No wheeze, No ra les Cardiovascular: Regular rate, Regular Rhythm, Normal S1, Normal S2, PMI Normal Abdomen: Bowel Sounds Present, Soft, Non Tender, Non-Distended, No Hepato- splenomegaly Extremities: No clubbing, No cyanosis, No edema Skin: No rashes, No breakdown Musculoskeletal: - - Right knee: Minimal swelling, no erythema, no evidence of infection. Lymphatic: No Cervical, Supraclavicular, or Inguinal Adenopathy Neurological: Cranial nerves II-XII grossly intact, Motor Exam 5/5 strength throughout Psych/Mental Status: Normal Affect, Appropriate, Alert and oriented to time, place, person, mood and affect Vital Signs Temp Pulse Resp BP Pulse Ox 98.0 F 75 12 106/60 100 03/02/19 09:00 03/02/19 10:54 03/02/19 09:00 03/02/19 09:00 03/02/19 09:00 Oxygen Delivery Method Room Air Weight: 145 lb 15.136 oz Body Mass Index (BMI) 22.8 Intake and Output for Last 24 Hours 02/28/19 03/01/19 03/02/19 23:59 23:59 23:59 Intake Total 1415.48 / 1415.48 400 / 400 Balance 1415.48 / 1415.48 400 / 400 Microbiology Past 72 Hours 03/01/19 17:27 Gram Stain - Final Sputum, Expectorated/Coughed Respiratory Culture - Preliminary Appears to be normal respiratory dasia. Further studies to follow. Laboratory Tests Past 24 Hrs 03/01/19 03/01/19 03/01/19 10:33 10:33 10:33 WBC 6.4 RBC 4.53 L Hgb 14.1 Hct 42.0 MCV 92.7 MCH 31.1 MCHC 33.6 RDW Std Deviation 41.7 RDW Coeff of [place]per[place] 12.1 Plt Count 328 MPV 10.0 Immature Gran % (Auto) 0.500 Neut % (Auto) 60.9 Lymph % (Auto) 28.9 Ross % (Auto) 8.6 Eos % (Auto) 0.6 Baso % (Auto) 0.5 Absolute Neuts (auto) 3.9 Absolute Lymphs (auto) 1.85 Nucleated RBC % 0 Differential Comment ESR PT 13.1 INR 1.0 APTT 27.4 Sodium 139 Potassium 3.8 Chloride 106 Carbon Dioxide 28.0 Anion Gap 5 BUN 13 Creatinine 0.83 Estim Creat Clear Calc 119.46 Est GFR (MDRD) Af Amer 138 Est GFR (MDRD) Non-Af 114 BUN/Creatinine Ratio 15.7 Glucose 88 Calcium 8.5 Total Bilirubin 1.20 H Direct Bilirubin Indirect Bilirubin AST 21 ALT 39 Alkaline Phosphatase 71 Total Protein 7.7 Albumin 4.0 Globulin 3.7 Albumin/Globulin Ratio 1.1 Urine Color Urine Clarity Urine pH Ur Specific [place] Urine Protein Urine Glucose (UA) Urine Ketones Urine Occult Blood Urine Nitrite Urine Bilirubin Urine Urobilinogen Ur Leukocyte Esterase Urine RBC Urine WBC Ur Squamous Epith Cells Urine Bacteria Urine Mucus Rheumatoid Factor Cycl Citrul Peptide IgG SHOSHANA Screen c-ANCA Antibody p-ANCA Antibody MARINA-1 Antibody SS-A/Ro IgG Antibody SS-B/La IgG Antibody Sm ([place]) Antibody HEALTH PROMOTION EDUCATOR Antibody Scl-70 Scleroderma Ab Double Strand DNA Ab Centromere B Antibody 03/01/19 03/01/19 03/01/19 14:55 14:55 14:55 WBC RBC Hgb 14.4 Hct 43.2 MCV MCH MCHC RDW Std Deviation RDW Coeff of [place] Plt Count MPV Immature Gran % (Auto) Neut % (Auto) Lymph % (Auto) Ross % (Auto) Eos % (Auto) Baso % (Auto) Absolute Neuts (auto) Absolute Lymphs (auto) Nucleated RBC % Differential Comment ESR 10 PT INR APTT Sodium Potassium Chloride Carbon Dioxide Anion Gap BUN Creatinine Estim Creat Clear Calc Est GFR (MDRD) Af Amer Est GFR (MDRD) Non-Af BUN/Creatinine Ratio Glucose Calcium Total Bilirubin 1.20 H Direct Bilirubin 0.24 Indirect Bilirubin 1.00 AST ALT Alkaline Phosphatase Total Protein Albumin Globulin Albumin/Globulin Ratio Urine Color Urine Clarity Urine pH Ur Specific [place] Urine Protein Urine Glucose (UA) Urine Ketones Urine Occult Blood Urine Nitrite Urine Bilirubin Urine Urobilinogen Ur Leukocyte Esterase Urine RBC Urine WBC Ur Squamous Epith Cells Urine Bacteria Urine Mucus Rheumatoid Factor Cycl Citrul Peptide IgG SH[place] Screen c-ANCA Antibody p-ANCA Antibody MARINA-1 Antibody SS-A/Ro IgG Antibody SS-B/La IgG Antibody Sm ([place]) Antibody HEALTH PROMOTION EDUCATOR Antibody Scl-70 Scleroderma Ab Double Strand DNA Ab Centromere B Antibody 03/01/19 03/01/19 03/01/19 14:55 15:25 16:26 WBC RBC Hgb Hct MCV MCH MCHC RDW Std Deviation RDW Coeff of [place] Plt Count MPV Immature Gran % (Auto) Neut % (Auto) Lymph % (Auto) Ross % (Auto) Eos % (Auto) Baso % (Auto) Absolute Neuts (auto) Absolute Lymphs (auto) Nucleated RBC % Differential Comment ESR PT INR APTT Sodium Potassium Chloride Carbon Dioxide Anion Gap BUN Creatinine Estim Creat Clear Calc Est GFR (MDRD) Af Amer Est GFR (MDRD) Non-Af BUN/Creatinine Ratio Glucose Calcium Total Bilirubin Direct Bilirubin Indirect Bilirubin AST ALT Alkaline Phosphatase Total Protein Albumin Globulin Albumin/Globulin Ratio Urine Color Yellow Urine Clarity Sl. Cloudy Urine pH 7.0 Ur Specific [place] 1.005 Urine Protein Negative Urine Glucose (UA) Normal Urine Ketones 50 H Urine Occult Blood Negative Urine Nitrite Negative Urine Bilirubin Negative Urine Urobilinogen Normal Ur Leukocyte Esterase Negative Urine RBC 0 SEEN Urine WBC 0 SEEN Ur Squamous Epith Cells 0-5 SEEN Urine Bacteria 0 SEEN Urine Mucus 0 SEEN Rheumatoid Factor < 10.0 Cycl Citrul Peptide IgG SHOSHANA Screen Pending c-ANCA Antibody p-ANCA Antibody MARINA-1 Antibody Pending SS-A/Ro IgG Antibody Pending SS-B/La IgG Antibody Pending Sm ([place]) Antibody Pending HEALTH PROMOTION EDUCATOR Antibody Pending Scl-70 Scleroderma Ab Pending Double Strand DNA Ab Pending Centromere B Antibody Pending 03/01/19 03/01/19 03/02/19 16:26 20:48 05:10 WBC 7.8 RBC 4.66 Hgb 13.9 14.4 Hct 40.8 42.8 MCV 91.8 MCH 30.9 MCHC 33.6 RDW Std Deviation 39.8 RDW Coeff of [place] 11.9 Plt Count 390 MPV 10.1 Immature Gran % (Auto) 0.400 Neut % (Auto) 79.4 H Lymph % (Auto) 14.9 L [place] % (Auto) 3.7 Eos % (Auto) 1.5 Baso % (Auto) 0.1 Absolute Neuts (auto) 6.2 Absolute Lymphs (auto) 1.16 Nucleated RBC % 0 Differential Comment SCANNED ESR PT INR APTT Sodium Potassium Chloride Carbon Dioxide Anion Gap BUN Creatinine Estim Creat Clear Calc Est GFR (MDRD) Af Amer Est GFR (MDRD) Non-Af BUN/Creatinine Ratio Glucose Calcium Total Bilirubin Direct Bilirubin Indirect Bilirubin AST ALT Alkaline Phosphatase Total Protein Albumin Globulin Albumin/Globulin Ratio Urine Color Urine Clarity Urine pH Ur Specific [place] Urine Protein Urine Glucose (UA) Urine Ketones Urine Occult Blood Urine Nitrite Urine Bilirubin Urine Urobilinogen Ur Leukocyte Esterase Urine RBC Urine WBC Ur Squamous Epith Cells Urine Bacteria Urine Mucus Rheumatoid Factor Cycl Citrul Peptide IgG Pending SHOSHANA Screen c-ANCA Antibody Pending p-ANCA Antibody Pending MARINA-1 Antibody SS-A/Ro IgG Antibody SS-B/La IgG Antibody Sm ([place]) Antibody HEALTH PROMOTION EDUCATOR Antibody Scl-70 Scleroderma Ab Double Strand DNA Ab Centromere B Antibody 03/02/19 05:10 WBC RBC Hgb Hct MCV MCH MCHC RDW Std Deviation RDW Coeff of [place] Plt Count MPV Immature Gran % (Auto) Neut % (Auto) Lymph % (Auto) Ross % (Auto) Eos % (Auto) Baso % (Auto) Absolute Neuts (auto) Absolute Lymphs (auto) Nucleated RBC % Differential Comment ESR PT INR APTT Sodium 140 Potassium 3.9 Chloride 107 Carbon Dioxide 26.0 Anion Gap 7 BUN 14 Creatinine 0.83 Estim Creat Clear Calc 119.46 Est GFR (MDRD) Af Amer 138 Est GFR (MDRD) Non-Af 114 BUN/Creatinine Ratio 16.8 Glucose 115 H Calcium 8.4 L Total Bilirubin 1.50 H Direct Bilirubin Indirect Bilirubin AST 19 ALT 34 Alkaline Phosphatase 67 Total Protein 7.8 Albumin 4.0 Globulin 3.8 Albumin/Globulin Ratio 1.1 Urine Color Urine Clarity Urine pH Ur Specific [place] Urine Protein Urine Glucose (UA) Urine Ketones Urine Occult Blood Urine Nitrite Urine Bilirubin Urine Urobilinogen Ur Leukocyte Esterase Urine RBC Urine WBC Ur Squamous Epith Cells Urine Bacteria Urine Mucus Rheumatoid Factor Cycl Citrul Peptide IgG SH[place]HANA Screen c-ANCA Antibody p-ANCA Antibody MARINA-1 Antibody SS-A/Ro IgG Antibody SS-B/La IgG Antibody Sm ([place]) Antibody HEALTH PROMOTION EDUCATOR Antibody Scl-70 Scleroderma Ab Double Strand DNA Ab Centromere B Antibody Discharge Activity: Return to Normal Activity Weight Bearing Status: Full weight bearing Call your doctor if you observe: Fever of 101 or Higher, Shortness of breath, Dizziness, Fainting spells, Chest pain, Increased palpitations (irregular heartbeat), Uncontrolled pain Home Medications: Medications to take at Discharge traMADol [Ultram] 50 mg PO Q6H PRN PRN 03/01/19 Prednisone 10 mg PO DAILY #30 tab 03/02/19 Following Prescrptions Were Given to Patient: Prednisone 10 mg PO DAILY #30 tab Transmission Status: Received by [facility] Primary Care Physician: NOT,DEFINED [NON-STAFF] - Please Follow Up With: Khushbu Beverly NP-C When: 2 weeks. Disposition: Home Minutes spent on discharge:: 26 Patient Condition:: Stable Medical Necessity - Tobacco Use Smoking Status: Never smoker Tobacco Use: Non-smoker Meaningful Use Info Meaningful Use Diagnoses (Choose all that apply): None applicable Code Visit OBSV E&M: 77715 Observation care discharge
[2019-03-03 15:22] LABS: ANTINUCLEAR ANTIBODIES DIRECT Negative (Negative)
[2019-03-04 03:06] LABS: Cytoplasmic Ab (C-ANCA) <1:20 titer (Neg:<1:20)
[2019-03-04 11:44] LABS: CCP IgG Antibodies 6 units (0-19); Perinuclear Ab (P-ANCA) <1:20 titer (Neg:<1:20)
== END 2019-03-02 11:09 | disposition home or self-care (01) ==
LOC: ED 13:18 → PCU 13:40
PROVIDERS: Internal Medicine Critical Care Medicine; Admitting Provider Internal Medicine; Emergency Provider Emergency Medicine; Visit Provider Hospitalist
DX: R04.2 Hemoptysis (principal); M79.89 Other specified soft tissue disorders; R91.8 Other nonspecific abnormal finding of lung field; Z98.890 Other specified postprocedural states
CPT/HCPCS: 36415; 71275; 80053; 81001; 82247; 82248; 85014; 85018; 85025; 85610; 85652; 85730; 86038; 86200; 86225; 86235; 86256; 86431; 87070; 87205; 93005; 96374; 96376; 99218; 99284; J7030; Q9967; A4216; G0378

== ENCOUNTER → 2025-03-15 | Outpatient (CLI) | payer OTHER, SELFPAY ==
--- NOTE | 2025-03-15 10:59 | CT_ITS ---
PROCEDURE: CT/Abdomen/Pelvis WITH Contrast
== END | disposition home or self-care (01) ==
PROVIDERS: PCP Family Medicine; Referring Provider Family Medicine; Visit Provider Family Medicine
DX: R10.30 Lower abdominal pain, unspecified (principal)
CPT/HCPCS: 74177; Q9967